=== PATIENT | male | born 1945 ===

== ENCOUNTER 2017-10-21 13:21 | Emergency (ER) | payer MEDICARE, BC ==
[2017-10-21 16:43] VITALS: BP 143/85
--- NOTE | 2017-10-21 18:48 | UC ---
Dieter Carlos Julia, scribed for Song Olson MD on 10/21/17 at 1704 . General HPI - HPI Summary HPI Summary: This patient is a 71 year old M presenting to [facility] with a chief complaint of chest congestion and lower abdominal pain with cough. Patient reports productive cough with some red chest congestion, hematuria, gravel in urine , and dark urine. Patient denies body aches, difficulty with urinary control. The patient rates the pain 5/10 in severity. Symptoms aggravated by cough. Patient had prostate removed one month ago at [facility]. He states he stopped taking the prescribed codeine recently and was hospitalized with DVT in his L calf. - History of Current Complaint Chief Complaint: UCRespiratory Stated Complaint: CONGESTION Time Seen by Provider: 10/21/17 16:31 Hx Obtained From: Patient Onset/Duration: Still Present Timing: Constant Pain Intensity: 5 Pain Location at: lower abdomen Aggravating: cough Associated Signs & Symptoms: Positive: Other - chest congestion and lower abdominalpain, productive cough with some red chest congestion, hematuria, gravel in urine, and dark urine Related Hx: Recent Hospitalization - prostate removal and DVT - Allergy/Home Medications Allergies/Adverse Reactions: Allergies Allergy/AdvReac Type Severity Reaction Status Date / Time codeine Allergy Swelling Verified 10/21/17 14:39 Home Medications: Home Medications Cholecalciferol (Vitamin D3) [Vitamin D3] 1,000 unit PO DAILY 10/21/17 [History Confirmed 10/21/17] L.acidoph,Paracasei, B.lactis [Probiotic] 1 each PO DAILY 10/21/17 [History Confirmed 10/21/17] Rivaroxaban TAB(*) [Xarelto 20 mg] 20 mg PO DAILY 10/21/17 [History Confirmed ] guaiFENesin ER TAB [Mucinex*] 600 mg PO BID 10/21/17 [History Confirmed 10/21/17 ] PMH/Surg Hx/FS Hx/Imm Hx Cardiovascular History: Deep Vein Thrombosis Respiratory History: Pneumonia - Surgical History Surgical History: Yes Surgery Procedure, Year, and Place: prostate surgery 09/2017 - Family History Known Family History: Positive: Other - colon CA - sister, ALS - father - Social History Alcohol Use: Rare Substance Use Type: None Smoking Status (MU): Former Smoker Have You Smoked in the Last Year: No When Did the Patient Quit Smoking/Using Tobacco: at age 29 Review of Systems Respiratory: Cough Gastrointestinal: Abdominal Pain - lower with cough Genitourinary: Negative - urgency, Hematuria - dark with "gravel" Musculoskeletal: Myalgia - negative All Other Systems Reviewed And Are Negative: Yes Physical Exam Triage Information Reviewed: Yes Vital Signs: Initial Vital Signs Temp 98.5 F 10/21/17 14:33 Pulse 84 10/21/17 14:33 Resp 16 10/21/17 14:33 BP 143/78 10/21/17 14:33 Pulse Ox 99 10/21/17 14:33 Vital Signs Reviewed: Yes - Additional Comments General: well-appearing, no pain distress Skin: warm, color reflects adequate perfusion, dry Head: normal Eyes: EOMI, MICHAEL ENT: rhinorrhea Neck: supple, nontender Respiratory: CTA, breath sounds present Cardiovascular: RRR Abdomen: soft, nontender Bowel: present Musculoskeletal: normal, strength/ROM intact Neurological: normal, sensory/motor intact, A&O x3 Psychological: affect/mood appropriate Course/Dx - Course Course Of Treatment: BP noted and advised to follow up with PCP. PATIENT REQUEST AND ANTIBIOTIC FOR HIS BRONCHITIS. HE DOES HAVE HEMATURIA WITH A TRACE OF LEUKOCYTES. AUGMENTIN WILL COVER URI AND URINE AND NOT NEGATIVELY INTERACT WITH HIS BLOOD THINNER. HE HAS F/U WITH UROLOGY SCHEDULED FOR 10/26/17. HE KNOWS TO GET RECHECKED SOONER IF WORSE. - Differential Dx - Multi-Symptom Provider Diagnoses: BRONCHITIS. HEMATURIA Discharge - Discharge Plan Condition: Stable Disposition: HOME Prescriptions: Amoxicillin/Clavulanate TAB* [Augmentin TAB 875*] 875 mg PO BID #20 tab Patient Education Materials: Acute Bronchitis (ED), Hematuria (ED) Referrals: Linda Granger MD [Primary Care Provider] - Additional Instructions: FOLLOW UP WITH YOUR PRIMARY CARE DOCTOR AND UROLOGIST. GET RECHECKED FOR ANY WORSENING OF YOUR CONDITION OR QUESTIONS OR CONCERNS. Your blood pressure was elevated during todays visit; please follow up with your primary care provider within a week for further evaluation The documentation as recorded by the Dieter goode Julia accurately reflects the service I personally performed and the decisions made by me, Song Olson MD.
== END 2017-10-21 18:33 | disposition home or self-care (01) ==
LOC: UCEAST 13:21
DX: J40 Bronchitis, not specified as acute or chronic (principal); R31.9 Hematuria, unspecified; R10.30 Lower abdominal pain, unspecified; Z90.79 Acquired absence of other genital organ(s); Z86.718 Personal history of other venous thrombosis and embolism; Z79.01 Long term (current) use of anticoagulants; Z87.891 Personal history of nicotine dependence
CPT/HCPCS: 81003; 87086; 99201; G0463